=== PATIENT | male | born 1985 | race African-American/Black ===

== ENCOUNTER 2024-12-12 03:39 | Emergency (ER) | payer MEDICAID ==
[~2024-12-12] VITALS: Ht 180.3 cm; Wt 90.0 kg
[~2024-12-12 03:39] MED LIST: LEVE1000 PO; ZONI100C45 MT
[2024-12-12 03:46] VITALS: O2SAT 98
[2024-12-12 04:40] VITALS: TEMP 36.72516
[2024-12-12 06:20] LABS: BASOPHILS % 0.6 % (0.0-2.0); DIFFERENTIAL COMMENT 0; EOSINOPHILS % 0.8 % (0.0-5.0); HEMATOCRIT. 47.5 % (42.0-52.0); HEMOGLOBIN. 16.2 g/dL (14.0-18.0); LYMPHOCYTES % 29.7 % (20.0-50.0); MEAN CORPUSCULAR HEMOGLOBIN 35.4 pg (28.0-32.0); MEAN PLATELET VOLUME 8.8 fl (7.4-10.4); NEUTROPHILS % 60.9 % (40.0-76.0); PLATELET 182 x1000/uL (130-400); RED BLOOD CELL COUNT 4.57 mill/uL (4.7-6.1); RED CELL DISTRIBUTION WIDTH 12.9 % (11.6-14.6); WHITE BLOOD COUNT 4.7 x1000/uL (4.5-11.0)
[2024-12-12 06:30] LABS: CHLORIDE 108 mEq/L (98-107); POTASSIUM 3.9 mEq/L (3.5-5.1); SODIUM 141 mEq/L (136-145)
[2024-12-12 06:31] LABS: CARBON DIOXIDE 23 mEq/L (21-32)
[2024-12-12 06:32] LABS: CALCIUM 9.4 mg/dL (8.7-10.4)
[2024-12-12 06:36] LABS: CREATININE 0.8 mg/dL (0.6-1.3); GLUCOSE 83 mg/dL (70-105)
[2024-12-12 06:38] LABS: UREA NITROGEN BLOOD < 5 mg/dL (9-23)
[2024-12-12 06:39] LABS: ETHANOL BLOOD < 10 mg/dL (<10)
[2024-12-12] MEDS ORDERED: HYDR453.3 TP (06:54)
[2024-12-12] MEDS: LEVETIRACETAM 500MG PREMIX 100 ML IV ONE ×2 (07:49→08:31)
[2024-12-12 08:52] VITALS: BP 132/85; PULSE 63; RESP 14; O2SAT 100
== END 2024-12-12 09:30 | disposition home or self-care (01) ==
LOC: ER 03:46
DX: G40.909 Epilepsy, unspecified, not intractable, without status epilepticus (principal); Z98.890 Other specified postprocedural states; Z79.899 Other long term (current) drug therapy; Z86.73 Personal history of transient ischemic attack (TIA), and cerebral infarction without residual deficits
CPT/HCPCS: 80048; 80320; 85025; 36415; 96365; 96366; 99285; J1953; Z7610 ×2; C1893; A4606; G0480